=== PATIENT | male | born 1975 | race Caucasian/White ===

== ENCOUNTER 2019-06-14 13:33 | Inpatient (IN) | payer BC ==
[~2019-06-14] VITALS: Ht 167.6 cm; Wt 83.8 kg
[~2019-06-14 13:33] MED LIST: B CO1TAB14 PO; BUPIVACAINE/PF 0.5% ONE; CYCL-259 PO; ESOM20CA PO; FENO160T PO; FINA5TAB4 PO; LOSA50TA14 PO; OMEP20TA62 PO; ROCURONIUM 10MG/ML,5ML ONE; SUCCINYLCHOLINE 20 MG/ML, 10ML ONE; [UNRECOGNIZED DRUG - REMARK]
[2019-06-14] MEDS ORDERED: FENTANYL PF 100 MCG/2ML ONE ×3 (13:54→16:38)
[2019-06-14] MEDS ORDERED: MIDAZOLAM 1 MG/ML, 2ML ONE (13:54)
[2019-06-14] MEDS ORDERED: LACTATED RINGERS 1,000 ML IV SCH ×2 (13:57→16:07)
[2019-06-14] MEDS ORDERED: GLYCOPYRROLATE 0.2MG/1ML, 5ML ONE (13:57)
[2019-06-14] MEDS ORDERED: HYDROmorphone 2 MG/ML, 1ML IVPush PRN (14:00)
[2019-06-14] MEDS ORDERED: HYDROcodone/APAP 7.5-325MG/15ML UDC PO PRN (14:00)
[2019-06-14] MEDS ORDERED: ONDANSETRON 2MG/ML, 2ML IV PRN (14:00)
[2019-06-14] MEDS ORDERED: hydrALAzine 20 MG/ML, 1ML IV PRN (14:00)
[2019-06-14] MEDS ORDERED: ACETAMINOPHEN 500 MG TABLET PO ONE (14:00)
[2019-06-14] MEDS ORDERED: LABETALOL 5MG/ML, 20ML IV PRN (14:00)
[2019-06-14] MEDS ORDERED: GABAPENTIN 300 MG CAPSULE PO ONE (14:00)
[2019-06-14] MEDS ORDERED: FENTANYL PF 100 MCG/2ML IV PRN (14:00)
[2019-06-14] MEDS ORDERED: PROMETHAZINE 25 MG/ML, 1ML IV PRN (14:00)
[2019-06-14] MEDS ORDERED: MEPERIDINE/PF 25MG/ML,1ML IVPush PRN (14:00)
[2019-06-14] MEDS ORDERED: EPHEDRINE 50 MG/ML, 1ML IVPush PRN (14:00)
[2019-06-14 14:01] VITALS: BP 160/107
[2019-06-14 14:16] VITALS: BP 163/95
[2019-06-14] MEDS ORDERED: SCOPOLAMINE PATCH, 1.5MG PATCH.TD72 TD ONE ×2 (14:22→14:30)
[2019-06-14] MEDS ORDERED: PROPOFOL 10 MG/ML, 20ML ONE (14:56)
[2019-06-14] MEDS ORDERED: DEXAMETHASONE 4 MG/ML, 1ML ONE ×2 (14:57)
[2019-06-14] MEDS ORDERED: ONDANSETRON 2MG/ML, 2ML ONE (15:04)
[2019-06-14] MEDS ORDERED: KETOROLAC 30 MG/1 ML ONE (15:04)
[2019-06-14] MEDS ORDERED: LIDOCAINE-MPF 2% ,5ML ONE (15:10)
[2019-06-14] MEDS ORDERED: EPHEDRINE 50 MG/ML, 1ML ONE (15:21)
[2019-06-14] MEDS ORDERED: DIPHENHYDRAMINE 50 MG/ML, 1ML IVPush PRN (16:30)
[2019-06-14] MEDS ORDERED: ONDANSETRON 2MG/ML, 2ML IVPush PRN (16:30)
[2019-06-14] MEDS ORDERED: CYCLOBENZAPRINE 10 MG TABLET PO PRN (16:30)
[2019-06-14] MEDS ORDERED: CALCIUM CARBONATE 500 MG TAB.CHEW PO PRN (16:30)
[2019-06-14] MEDS ORDERED: LORazepam 2 MG/ML, 1ML IVPush PRN (16:30)
[2019-06-14] MEDS ORDERED: SCOPOLAMINE PATCH, 1.5MG PATCH.TD72 TD PRN (16:30)
[2019-06-14] MEDS ORDERED: OXYcodone 5 MG/5 ML ORAL.SOL UDC ONE (16:38)
[2019-06-14] MEDS: FENTANYL PF 100 MCG/2ML IVPush PRN (16:40)
[2019-06-14] MEDS ORDERED: OXYcodone 5 MG/5 ML ORAL.SOL UDC PO PRN (17:00)
[2019-06-14] MEDS: OXYcodone IR 5MG TABLET PO PRN ×2 (17:50→22:11)
[2019-06-14 20:18] VITALS: BP 123/79
[2019-06-14] MEDS: IBUPROFEN 800 MG TABLET PO SCH (21:01)
[2019-06-14] MEDS: SODIUM CHLORIDE FLUSH 10ML SYR IVF SCH (21:12)
[2019-06-14 22:24] LABS: MICROSCOPIC AUTO
[2019-06-15] MEDS: FENTANYL PF 100 MCG/2ML IVPush PRN (00:39)
[2019-06-15] MEDS: OXYcodone IR 5MG TABLET PO PRN ×5 (01:53→18:56)
[2019-06-15 03:19] LABS: BASOPHILS % (AUTO) 0 % (0-1); EOSINOPHILS % (AUTO) 0 % (1-7); LYMPHOCYTES # (AUTO) 1.01 x10^3/uL (1-3.4); LYMPHOCYTES % (AUTO) 7 % (22-44); MEAN CORPUSCULAR HEMOGLOBIN 29.8 pg (27.5-34.5); MEAN CORPUSCULAR HGB CONC 34.2 g/dL (33.2-36.2); MEAN CORPUSCULAR VOLUME 87.3 fL (81-97); MEAN PLATELET VOLUME 8.7 fL (7.4-10.4); MONOCYTES # (AUTO) 0.66 x10^3/uL (0.2-0.8); MONOCYTES % (AUTO) 5 % (2-9); NEUTROPHILS % (AUTO) 88 % (42-75); PLATELET COUNT 261 x10^3/uL (130-400); RED BLOOD COUNT 4.89 x10^6/uL (4.38-5.82); RED CELL DISTRIBUTION WIDTH 12.8 % (9.4-14.8)
[2019-06-15 03:22] LABS: MD NO
[2019-06-15 04:29] VITALS: BP 113/72
[2019-06-15] MEDS: OMEPRAZOLE 20 MG CAPSULE.DR PO SCH (06:18)
[2019-06-15 08:47] VITALS: BP 114/67
[2019-06-15] MEDS: FENOFIBRATE 145 MG TABLET PO SCH (09:14)
[2019-06-15] MEDS: IBUPROFEN 800 MG TABLET PO SCH ×3 (09:14→21:00)
[2019-06-15] MEDS: LOSARTAN 50MG TABLET PO SCH (09:14)
[2019-06-15] MEDS ORDERED: ACETAMINOPHEN 325 MG TABLET PO PRN (09:30)
[2019-06-15] MEDS: SODIUM CHLORIDE FLUSH 10ML SYR IVF SCH ×2 (09:32→21:00)
[2019-06-15] MEDS: FINASTERIDE 5 MG TABLET PO SCH (09:32)
[2019-06-15] MEDS: PSYLLIUM PACKET PO SCH ×2 (09:32→21:00)
[2019-06-15 13:05] VITALS: BP 117/70
[2019-06-15] MEDS: LACTATED RINGERS 1,000 ML IV SCH (16:07)
[2019-06-15 18:47] VITALS: BP 130/80
[2019-06-16] MEDS: LACTATED RINGERS 1,000 ML IV SCH ×2 (02:07→12:07)
[2019-06-16 03:22] VITALS: BP 118/73
[2019-06-16] MEDS: OMEPRAZOLE 20 MG CAPSULE.DR PO SCH (06:21)
[2019-06-16] MEDS: OXYcodone IR 5MG TABLET PO PRN ×3 (06:21→16:03)
[2019-06-16 07:23] VITALS: BP 134/80
[2019-06-16] MEDS: FENOFIBRATE 145 MG TABLET PO SCH (10:12)
[2019-06-16] MEDS: LOSARTAN 50MG TABLET PO SCH (10:12)
[2019-06-16] MEDS: FINASTERIDE 5 MG TABLET PO SCH (10:13)
[2019-06-16] MEDS: IBUPROFEN 800 MG TABLET PO SCH ×2 (10:13→16:03)
[2019-06-16] MEDS: PSYLLIUM PACKET PO SCH (10:14)
[2019-06-16] MEDS: SODIUM CHLORIDE FLUSH 10ML SYR IVF SCH (10:20)
[2019-06-16] MEDS ORDERED: OXYC5CAP2 PO (14:13)
[2019-06-16 15:18] VITALS: BP 146/80
== END 2019-06-16 16:10 | disposition home or self-care (01) | DRG 352 ==
LOC: OR 13:33 → OBSVTOIN 16:53 → ORIP 16:53 → 4NE 17:44 → DCLOUNGE 06-16 16:09
PROVIDERS: ADMIT Surgery; ATTEND Surgery
PROC: 8E0W4CZ Robotic Assisted Procedure of Trunk Region, Percutaneous Endoscopic Approach (ICD-10-PCS; 2019-06-14)
PROC: 0YU64JZ Supplement Left Inguinal Region with Synthetic Substitute, Percutaneous Endoscopic Approach (ICD-10-PCS; principal; 2019-06-14 15:30)
DX: K40.90 Unilateral inguinal hernia, without obstruction or gangrene, not specified as recurrent (principal); I10 Essential (primary) hypertension; E78.5 Hyperlipidemia, unspecified; K21.9 Gastro-esophageal reflux disease without esophagitis; R31.9 Hematuria, unspecified
CPT/HCPCS: 36415; 74430; J3490; S0020; 81001; 85025; G0378; J1100; J1885; J2250; J2405; J2704; J3010; C1781; J0330; J2060; J7120